=== PATIENT | male | born 1975 ===

== ENCOUNTER 2023-03-02 22:25 | Emergency (ER) | payer OTHER ==
[~2023-03-02] VITALS: Ht 180.3 cm; Wt 104.3 kg
[2023-03-02] MEDS ORDERED: RAMIPRIL2.5 MG PO (23:04)
[2023-03-03] MEDS ORDERED: KETO10TA2 PO (05:15)
[2023-03-03] MEDS ORDERED: CIPRO500 MG PO (05:15)
== END 2023-03-03 05:21 ==
LOC: ER 22:25
PROVIDERS: General Practice
DX: N39.0 Urinary tract infection, site not specified (principal); R30.0 Dysuria; Z88.0 Allergy status to penicillin

== ENCOUNTER 2023-03-05 10:48 | Emergency (ER) | payer OTHER ==
[~2023-03-05] VITALS: Ht 180.3 cm; Wt 104.3 kg
[~2023-03-05 10:48] MED LIST: CIPRO500 MG PO; KETO10TA2 PO; RAMIPRIL2.5 MG PO
== END 2023-03-05 14:59 | disposition home or self-care (01) ==
LOC: ER 10:48
PROVIDERS: General Practice
DX: N39.0 Urinary tract infection, site not specified (principal); I10 Essential (primary) hypertension; Z88.0 Allergy status to penicillin

== ENCOUNTER 2023-03-12 06:03 | Emergency (ER) | payer OTHER ==
[~2023-03-12] VITALS: Ht 180.3 cm; Wt 104.3 kg
== END 2023-03-12 14:52 ==
LOC: ER 06:03
PROVIDERS: General Practice
DX: N39.0 Urinary tract infection, site not specified (principal); Z88.0 Allergy status to penicillin